=== PATIENT | male | born 1975 | race Caucasian/White ===

== ENCOUNTER → 2017-04-27 | Outpatient (CLI) | payer OTHER ==
[~2017-04-27] MED LIST: ASPIRIN325 PO; CARDIZEM CD240 MG PO; FLECAINIDE ACE100 MG PO; PRADAXA150 MG PO
== END ==
LOC: NUC 04-20 15:19
DX: R10.11 Right upper quadrant pain (principal)

== ENCOUNTER → 2017-05-15 | Outpatient (CLI) | payer OTHER | LOC: ULTRA 12:57 | DX: K80.20 Calculus of gallbladder without cholecystitis without obstruction (principal); K82.9 Disease of gallbladder, unspecified ==

== ENCOUNTER 2017-06-05 05:24 | Inpatient (IN) | payer OTHER ==
[~2017-06-05] VITALS: Ht 175.3 cm; Wt 145.1 kg
--- NOTE | ~2017-06-05 | S ---
[facility] [place] [address] SURGICAL PATH RPT PROCEDURE Name: NADINE NAJERA JR Room #: 434-P [facility] IN M.R.#: [id number] Admission: 06/05/17 Date of : 73 Discharge: 06/06/17 Report #: [id number] Path Case #: [id number] PATHOLOGY REPORT COLLECTION DATE: 06/05/2017 RECEIVED DATE: 06/05/2017 SUBMITTING PHYS: Dr. Sabino Dahl OTHER PHYS: Dr. Fredis Hardy SPECIMEN(S) RECEIVED: A.Gallbladder * * * * * * * * * * * * FINAL DIAGNOSIS: Gallbladder, cholecystectomy: - Mild chronic cholecystitis. - Cholesterolosis. PATHOLOGIST: Yancy Berry M.D. REPORT ELECTRONICALLY SIGNED BY: Yancy Berry M.D. DATE/TIME: 06/07/2017 15:02 * * * * * * * * * * * * GROSS PATHOLOGY: Received in formalin labeled "Nadine Najera Jr, gallbladder," is a 7.1 x 4.9 x 1.6 cm, previously opened gallbladder with a hood bluish, wrinkled, and vascular serosal surfaces. Opening the gallbladder reveals dark munroe, velvety mucosa, rippled with yellow highlights, and an average wall thickness of 0.2 cm. Calculi are not present (upon filtration of the specimen container and contents) and no masses are noted grossly. In Service Education Teacher sections from the body and fundus are submitted along with the proximal margin in cassette A1. (TSD; 06/05/2017) CLINICAL HISTORY: Pre-OP DX: Gallstones Post-OP DX: Chronic and subacute cholelithiasis, cholesterolosis INITIAL CPT CODE(S): A; 68091 Professional services performed by [facility] at [facility] [address], [place] [address] Technical services performed by [facility] at [address] [place] [address] [address] [place] [address] SURGICAL PATH RPT PROCEDURE Name: NADINE NAJERA Pranay Room #: 434-P [facility] IN [facility].#: [id number] Admission: 06/05/17 Date of : 73 Discharge: 06/06/17 Report #: [id number] Path Case #: [id number] [place] [address]. [facility] [address] [place] [address] PHONE: [phone] DIRECTOR: Harvey Wilkerson M.D. * * * END OF REPORT * * *
--- NOTE | ~2017-06-05 | O ---
[facility] [place] [address] OPERATIVE REPORT Name: NADINE FERNANDEZ JR Room #: 434-P ADM IN M.R.#: [id number] Admission: 06/05/17 Attend Phys: Sabino Dahl MD, F Discharge: Date of : 73 Report #: [id number] THIS REPORT FOR: //name// CC: Sabino Escotopaulino Hardy DATE OF SERVICE: 06/05/2017 PREOPERATIVE DIAGNOSIS: Subacute and chronic cholecystitis with cholelithiasis. POSTOPERATIVE DIAGNOSIS: Subacute and chronic cholecystitis with cholelithiasis with cholesterolosis. PROCEDURE: Laparoscopic cholecystectomy with intraoperative cholangiogram. SURGEON: Sabino Dahl MD BILLET ASSEMBLER: Duong Metzger DO SECOND COAT ROOM ATTENDANT: Marlen Herzog MS3 INDICATIONS: A 42-year-old male with 2-3 months of progressive food intolerance. An ultrasound demonstrating cholelithiasis and EGD and colonoscopy within normal limits. OPERATIVE PROCEDURE: The patient had thorough discussion of the procedure, benefits and risks. He gave informed consent to proceed. He was given preoperative IV antibiotics. He was brought to the operating suite and had satisfactory induction of general endotracheal anesthesia. The patient's entire abdomen was prepped and draped in usual sterile procedure with DuraPrep solution. Prior to draping, the patient was securely strapped and taped to the operating room table. Sterile prep and draping was completed, 0.5% plain Naropin was utilized at all trocar sites, 30 mL was utilized during the procedure. An open cutdown procedure was performed at the infraumbilical port site. The 5 mm trocar with a 5.0 scope was easily introduced into the peritoneal cavity. Pneumoperitoneum was established. An upper midline 5 mm trocar port and 2 lateral 5 mm trocar ports were then placed under direct vision. The infraumbilical port was upsized to a 12 mm port with the Cristóbal balloon device. The gallbladder was grasped, retracted cephalad and laterally. Photographs were taken and made part of the medical record. Gallbladder had adhesions to the inferior aspect of the gallbladder. These were taken down with blunt dissection as well as the Sonicision. The cystic duct triangle was clearly delineated. The cystic duct was milked in a retrograde manner toward the gallbladder. Clip was placed toward the gallbladder. A cystotomy was performed. The taut catheter was then inserted into the cystic duct. Flushing of contrast material demonstrated free flow of contrast into the duodenum. [facility] [address] [place] [address] OPERATIVE REPORT Name: NADINE FERNANDEZ JR Room #: 434-P [facility] IN [facility]#: [id number] Admission: 06/05/17 Attend Phys: Sabino Dahl MD, F Discharge: Date of : 73 Report #: [id number] filling defects were encountered. The common hepatic duct and bifurcation were well visualized. The taut catheter was removed. The cystic duct was triply ligated and then divided with Sonicision. The cystic artery was doubly ligated proximally and divided with Sonicision. Gallbladder was resected from the fossa without difficulty. The gallbladder was then placed into an Endobag and removed from the infraumbilical port site. A 0 PDS bcqzap-vu-egcvn suture was placed under direct vision with the suture passer. The Cristóbal trocar was reintroduced, pneumoperitoneum was continued. The patient was flattened. Copious irrigation and evacuation of all irrigating contents was accomplished. No other intra-abdominal pathology was noted. The 5 mm trocar ports were then removed under direct vision. The pneumoperitoneum was evacuated. The 12 mm trocar port was removed at the infraumbilical ports device. The 0 PDS suture was ligated in place. Skin margins were then approximated with subcuticular 4-0 Monocryl at the 5 mm trocar sites. A 4-0 Vicryl was utilized to approximate the infraumbilical skin. Dermabond was applied. The estimated blood loss was less than 10 mL. The patient tolerated the procedure well and he returned to recovery room in stable and satisfactory condition. <ELECTRONICALLY SIGNED> By: Sabino Dahl MD, FACS 06/06/17 1545 1105 1205 Sabino Dahl MD, FACS /nt
[2017-06-05 07:38] LABS: CALCIUM 8.6 mg/dL (8.5-10.1); POTASSIUM 4.1 mmol/L (3.5-5.1)
[2017-06-05 07:48] LABS: TOTAL BILIRUBIN 0.4 mg/dL (<0.1-1.0); TOTAL PROTEIN 7.2 g/dL (6.4-8.2)
[2017-06-05 07:58] VITALS: BP 139/84
[2017-06-05 08:56] LABS: HEMATOCRIT 41.7 % (42.0-52.0); HEMOGLOBIN 14.1 gm/dL (14.0-18.0); MCH 30.9 pg (26.0-34.0); MCHC 33.9 g/dL (28.0-37.0); MCV 91.1 fL (80.0-100.0); RBC 4.58 mil/uL (4.50-6.00); RDW 13.9 % (10.5-14.5); WBC 8.3 thou/uL (4.0-11.0)
[2017-06-05 16:00] VITALS: BP 156/93
[2017-06-05 20:01] VITALS: BP 157/96
[2017-06-06 04:02] VITALS: BP 124/64
[2017-06-06 04:06] VITALS: BP 124/64
[2017-06-06 07:25] VITALS: BP 149/76
[2017-06-06 15:51] VITALS: BP 149/76
== END 2017-06-06 16:08 | disposition home or self-care (01) | DRG 418 ==
LOC: OR 05:24 → 4S 13:54 → OR 16:27 → ENTRNSPT 06-06 15:53 → EDTRNSPTSTS 06-06 15:56 → 4S 06-06 16:08
PROVIDERS: Surgery
PROC: BF141ZZ Fluoroscopy of Gallbladder, Bile Ducts and Pancreatic Ducts using Low Osmolar Contrast (ICD-10-PCS; principal; 2017-06-05)
PROC: 0FT44ZZ Resection of Gallbladder, Percutaneous Endoscopic Approach (ICD-10-PCS; principal; 2017-06-05)
DX: K80.12 Calculus of gallbladder with acute and chronic cholecystitis without obstruction (principal); Z68.42 Body mass index [BMI] 45.0-49.9, adult; I48.91 Unspecified atrial fibrillation; Z87.891 Personal history of nicotine dependence; E78.5 Hyperlipidemia, unspecified; G47.30 Sleep apnea, unspecified; I10 Essential (primary) hypertension; K22.70 Barrett's esophagus without dysplasia; E66.9 Obesity, unspecified
CPT/HCPCS: 10195; 50010; 50101; 50249; 50411; 50555; 50962; 51489; 51975; 52265; 53307; 53314; 54022; 54118; 55245; 55317; 56462; 56525; 56526; 62110; 62900

== ENCOUNTER → 2019-06-21 | Outpatient (CLI) | payer OTHER | LOC: CANPRECLI → CAT 07:30 | DX: Z13.6 Encounter for screening for cardiovascular disorders (principal); I48.0 Paroxysmal atrial fibrillation; G47.30 Sleep apnea, unspecified; I10 Essential (primary) hypertension; E78.00 Pure hypercholesterolemia, unspecified; I25.10 Atherosclerotic heart disease of native coronary artery without angina pectoris; F17.210 Nicotine dependence, cigarettes, uncomplicated; Z79.899 Other long term (current) drug therapy ==

== ENCOUNTER 2020-01-04 18:11 | Emergency (ER) | payer OTHER ==
[~2020-01-04] VITALS: Ht 175.3 cm; Wt 146.1 kg
[2020-01-04 19:06] LABS: ABSOLUTE NEUTROPHILS 4.3 thou/uL (1.4-8.2); BASOPHILS 0.6 % (0.0-2.0); EOSINOPHILS 1.9 % (0.0-3.0); HEMATOCRIT 45.7 % (42.0-52.0); HEMOGLOBIN 15.9 gm/dL (14.0-18.0); LYMPHOCYTES 38.2 % (24.0-44.0); MCH 32.2 pg (26.0-34.0); MCHC 34.7 g/dL (28.0-37.0); MCV 92.8 fL (80.0-100.0); MONOCYTES 11.7 % (1.0-8.0); PLATELET COUNT 286 thou/uL (150-400); POLYS 47.6 % (36.0-66.0); RBC 4.92 mil/uL (4.50-6.00)
[2020-01-04 19:09] LABS: ANION GAP 6 mmol/L (7-16); BUN 12 mg/dL (7-18); CALCIUM 8.7 mg/dL (8.5-10.1); CHLORIDE 103 mmol/L (98-107); CO2 29 mmol/L (21-32); CREATININE 1.1 mg/dL (0.7-1.3); GLUCOSE 107 mg/dL (74-106); POTASSIUM 3.6 mmol/L (3.5-5.1); SODIUM 138 mmol/L (136-145)
[2020-01-04 19:20] LABS: ALBUMIN 3.9 g/dL (3.4-5.0); MAGNESIUM 1.9 mg/dL (1.8-2.4); SGOT 23 U/L (15-37); SGPT 45 U/L (30-65); TOTAL BILIRUBIN 0.3 mg/dL (<0.1-1.0); TOTAL PROTEIN 7.7 g/dL (6.4-8.2); TROPONIN-I <0.06 ng/mL (<0.06)
[2020-01-04 20:14] VITALS: BP 146/89
--- NOTE | 2020-01-05 10:20 | EKG ---
[facility] [place] [address] ELECTROCARDIOGRAM REPORT Name: NADINE FERNANDEZ Room #: DEP [facility]..#: [id number] Admission: 01/04/20 Attend Phys: Discharge: 01/04/20 Date of : 73 Report #: [id number] THIS REPORT FOR: cc: Fredis Hardy MD, Neal A. 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[facility] : 1975 Requested By: Peter Kohler Order Number: [id number] MD: Isaac Poe Measurements Intervals [place] Rate: 103 P: 43 VT: 140 QRS: 41 QRSD: 94 T: 33 QT: 316 QTc: 414 Interpretive Statements Sinus tachycardia Atrial premature complexes Compared to ECG 12/17/2014 07:42:04 Atrial premature complex(es) now present Electronically Signed On 01-05-2020 10:18:45 CDT by Isaac Poe [email or web address] <ELECTRONICALLY SIGNED> By: Isaac Poe MD, FACC 01/05/20 1018 1820 1820 Isaac Poe MD, [facility] /EPI
== END 2020-01-04 20:14 | disposition home or self-care (01) ==
LOC: ER 18:11
PROVIDERS: Emergency Medicine
DX: R00.2 Palpitations (principal); R00.0 Tachycardia, unspecified; I48.91 Unspecified atrial fibrillation; I10 Essential (primary) hypertension; E78.5 Hyperlipidemia, unspecified; Z79.899 Other long term (current) drug therapy; Z88.8 Allergy status to other drugs, medicaments and biological substances; Z87.891 Personal history of nicotine dependence

== ENCOUNTER → 2020-01-13 | Outpatient (CLI) | payer OTHER | LOC: RAD 11:29 | DX: R19.5 Other fecal abnormalities (principal) ==

== ENCOUNTER → 2020-01-13 | Outpatient (CLI) | payer OTHER | LOC: SJCVCIMAG 12:19 | DX: I48.19 Other persistent atrial fibrillation (principal); I10 Essential (primary) hypertension; Z98.890 Other specified postprocedural states; Z87.891 Personal history of nicotine dependence; Z86.79 Personal history of other diseases of the circulatory system ==

== ENCOUNTER 2021-03-14 15:19 | Emergency (ER) | payer OTHER ==
[~2021-03-14] VITALS: Ht 175.3 cm; Wt 143.8 kg
[2021-03-14 15:33] VITALS: BP 170/95
[2021-03-14] MEDS ORDERED: AMLODIPINE BESY10 MG PO (15:37)
[2021-03-14] MEDS ORDERED: ATORVASTATIN CA20 MG PO (15:37)
[2021-03-14] MEDS ORDERED: METFORMIN HCL500 M1 PO (15:37)
[2021-03-14] MEDS ORDERED: DOXYCYCLINE 10100 MG PO (15:50)
== END 2021-03-14 16:09 | disposition home or self-care (01) ==
LOC: ER 15:19
DX: S81.812A Laceration without foreign body, left lower leg, initial encounter (principal); I48.91 Unspecified atrial fibrillation; E78.5 Hyperlipidemia, unspecified; I10 Essential (primary) hypertension; K22.70 Barrett's esophagus without dysplasia; F17.210 Nicotine dependence, cigarettes, uncomplicated; Z79.899 Other long term (current) drug therapy; Z88.1 Allergy status to other antibiotic agents; W01.0XXA Fall on same level from slipping, tripping and stumbling without subsequent striking against object, initial encounter; Y93.89 Activity, other specified; Y92.89 Other specified places as the place of occurrence of the external cause; Y99.8 Other external cause status

== ENCOUNTER → 2021-03-26 | Outpatient (CLI) | payer OTHER ==
[~2021-03-26] MED LIST changes: +AMLODIPINE BESY10 MG PO; +ATORVASTATIN CA20 MG PO; +DOXYCYCLINE 10100 MG PO; +METFORMIN HCL500 M1 PO
== END ==
LOC: HYPER 07:37
PROVIDERS: ATTEND Emergency Medicine Emergency Medical Services
DX: S81.822A Laceration with foreign body, left lower leg, initial encounter (principal); E11.622 Type 2 diabetes mellitus with other skin ulcer; L97.822 Non-pressure chronic ulcer of other part of left lower leg with fat layer exposed; I25.10 Atherosclerotic heart disease of native coronary artery without angina pectoris; I48.91 Unspecified atrial fibrillation; I10 Essential (primary) hypertension; E78.00 Pure hypercholesterolemia, unspecified; E66.8 Other obesity; G47.33 Obstructive sleep apnea (adult) (pediatric); F17.200 Nicotine dependence, unspecified, uncomplicated; Z68.42 Body mass index [BMI] 45.0-49.9, adult; Z79.82 Long term (current) use of aspirin; Z79.899 Other long term (current) drug therapy; Z90.49 Acquired absence of other specified parts of digestive tract; W22.8XXA Striking against or struck by other objects, initial encounter; Y93.89 Activity, other specified; Y92.89 Other specified places as the place of occurrence of the external cause; Y99.8 Other external cause status

== ENCOUNTER 2021-04-25 21:49 | Emergency (ER) | payer OTHER ==
[~2021-04-25] VITALS: Ht 175.3 cm; Wt 142.9 kg
[2021-04-25] MEDS ORDERED: ASA81BEC PO (22:02)
[2021-04-25 22:28] LABS: ABSOLUTE NEUTROPHILS 5.2 thou/uL (1.4-8.2); BASOPHILS 0.4 % (0.0-2.0); EOSINOPHILS 3.1 % (0.0-3.0); HEMATOCRIT 42.9 % (42.0-52.0); HEMOGLOBIN 14.6 gm/dL (14.0-18.0); LYMPHOCYTES 37.3 % (24.0-44.0); MCH 31.6 pg (26.0-34.0); MCV 92.9 fL (80.0-100.0); MONOCYTES 9.8 % (1.0-8.0); PLATELET COUNT 287 thou/uL (150-400); POLYS 49.4 % (36.0-66.0); RBC 4.62 mil/uL (4.50-6.00); RDW 13.6 % (10.5-14.5); WBC 10.5 thou/uL (4.0-11.0)
[2021-04-25 22:38] LABS: CALCIUM 8.2 mg/dL (8.5-10.1); CREATININE 1.1 mg/dL (0.7-1.3); POTASSIUM 4.4 mmol/L (3.5-5.1)
[2021-04-25] MEDS ORDERED: DILTIAZEM ER240 MG PO (23:04)
[2021-04-25 23:53] LABS: URINE BILIRUBIN NEGATIVE (Negative); URINE BLOOD 1+ (Negative); URINE CLARITY CLEAR; URINE COLOR YELLOW; URINE GLUCOSE-RANDOM* NEGATIVE (Negative); URINE KETONES NEGATIVE (Negative); URINE LEUKOCYTES-REFLEX NEGATIVE (Negative); URINE NITRITE-REFLEX NEGATIVE (Negative); URINE PROTEIN (DIPSTICK) NEGATIVE (Negative); URINE SPECIFIC GRAVITY 1.015 (1.005-1.035); URINE UROBILINOGEN 0.2 E.U./dl (0.2-1.0)
[2021-04-26 00:12] VITALS: BP 102/63
[2021-04-26 00:25] LABS: BACTERIA-REFLEX None Seen /HPF (None Seen); CASTS None Seen /LPF (None Seen); CRYSTALS None Seen /LPF (None Seen); MUCUS None Seen strn/LPF (None Seen); SQUAMOUS None Seen /LPF (0-3); URINE RBC 1-2 Rare /HPF (NONE SEEN); URINE WBC-REFLEX None Seen /HPF (0-5)
--- NOTE | 2021-04-26 07:17 | EKG ---
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 : 1975 Requested By: Pete Landon Order Number: [id number] MD: Boris Puente Measurements Intervals [place] Rate: 120 P: MN: QRS: 17 QRSD: 91 T: 4 QT: 319 QTc: 451 Interpretive Statements Atrial fibrillation Compared to ECG 01/04/2020 18:20:22 Sinus tachycardia no longer present Atrial premature complex(es) no longer present Electronically Signed On 04-26-2021 7:17:14 CDT by Boris Puente [email or web address] <ELECTRONICALLY SIGNED> By: Boris Puente MD, [facility] 04/26/21 0717 2157 2157 Boris Puente MD, FACC /EPI
--- NOTE | 2021-04-26 15:09 | EKG ---
[place] [address] [facility] [place] [address] ELECTROCARDIOGRAM REPORT Name: NADINE FERNANDEZ 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
== END 2021-04-26 00:16 | disposition home or self-care (01) ==
LOC: ER 21:49
PROVIDERS: Student in an Organized Health Care Education/Training Program
DX: I48.20 Chronic atrial fibrillation, unspecified (principal); E78.5 Hyperlipidemia, unspecified; I10 Essential (primary) hypertension; E11.9 Type 2 diabetes mellitus without complications; F17.210 Nicotine dependence, cigarettes, uncomplicated; Z79.82 Long term (current) use of aspirin; Z79.899 Other long term (current) drug therapy; Z88.8 Allergy status to other drugs, medicaments and biological substances

== ENCOUNTER 2021-05-17 09:01 | Observation (INO) | payer OTHER ==
[2021-05-17] VITALS (10 sets, daily range): BP systolic 119–137; BP diastolic 60–87
[~2021-05-17] VITALS: Ht 175.3 cm; Wt 134.3 kg
--- NOTE | ~2021-05-17 | P ---
[facility] [address] PROCEDURE REPORT Name: NADINE FERNANDEZ JR Room #: 204-P [facility] M..#: [id number] Admission: 05/17/21 Attend Phys: J Luis Dobbs MD Discharge: Date of : 73 Report #: [id number] THIS REPORT FOR: cc: Fredis Hardy MD, Neal A. MD Couchonnal, Luis F. MD ~ DATE OF SERVICE: 05/17/2021 DATE OF PROCEDURE: 05/17/2021. PROCEDURES PERFORMED: 1. Atrial fibrillation ablation -- CPT code 66264. 2. Mapping, CPT code 06496. 3. Intracardiac echo, CPT code 02840. 4. Focal ablation, CPT code 63451. HISTORY: The patient is a 46-year-old male with history of paroxysmal atrial fibrillation status post ablation back in September 2015 as well as hypertension, obesity, obstructive sleep apnea, prior tobacco abuse, who has had recurrent atrial fibrillation despite antiarrhythmic drug therapy and is here for a repeat ablation. ANESTHESIA: The patient underwent general anesthesia with no anesthesia related complications. DESCRIPTION OF PROCEDURE: The patient underwent informed consent. We discussed the details of the procedure including the risks, which include but not limited to bleeding, vascular damage, stroke, [place], cardiac perforation as well as damage to the alturas conduction system requiring permanent pacemaker. He understood these risks and is willing to proceed. The patient was brought to the EP laboratory in fasting and sedated state, prepped and draped in a standard fashion. At baseline, the patient was in sinus rhythm. I obtained access to the right femoral vein x 3, placing an 8, 9 and 7-Mosotho short sheath using the modified Seldinger technique. Next, under fluoroscopy, a decapolar catheter was placed in the coronary sinus and ICE catheter was placed in the right atrium. The patient was systemically heparinized and a transseptal was performed using an Agilis sheath, and a Wakefield needle. The patient did have a thick interatrial septum, but I was able to cross along the mid interatrial septum. I was able to get my wire out into the left superior pulmonary vein, but I could not advance the Agilis sheath into the left atrium. Therefore, I exchanged for the SL1 sheath. Again, this would not cross into the left atrium either. Therefore, I [facility] [address] [place] [address] PROCEDURE REPORT Name: NADINE FERNANDEZ YOSVANY Room #: 204-P [facility] Devon Nayak#: [id number] Admission: 05/17/21 Attend Phys: J Luis Dobbs MD Discharge: Date of : 73 Report #: [id number] advanced a PowerFlex Pro 6 mm x 4 cm balloon across the septum into the left atrium. I then performed 3 dilatations of the interatrial septum, each at 10 atmospheres and for 10 seconds duration each. After performing this procedure, the SL1 sheath easily advanced into the left atrium. I then exchanged for the cryosheath and again now this easily crossed into the left atrium. Next, I used the PentaRay to create a detailed 3D geometry and voltage map of the left atrium and this showed that all veins had reconnected except for the right superior pulmonary vein. Therefore, I started by re-isolating the left-sided veins almost a shared a common ostium. When I remapped, they were still connected and I ablated along the roof, posterior aspect of the left superior pulmonary vein and then I moved to the anterior fabricio and ablation near the left inferior pulmonary vein fabricio region resulted in isolation of both veins. Next, I turned my attention to the right-sided veins. The right superior pulmonary vein was isolated and therefore, I re-isolated the right inferior pulmonary vein. A repeat voltage map was created and demonstrated that all 4 pulmonary veins were now isolated. The posterior wall appeared to be nice and healthy with no complex fractionated electrograms noted or any intraatrial fibrosis. A basic EP study was performed. AV block was noted at 290 milliseconds. Atrial ERP was noted at 260 milliseconds at a [address] cycle length with atrial burst pacing down to 220 milliseconds. The patient went into atrial flutter with a proximal and distal activation along the CS cycle length of 220 milliseconds and negative sawtooth flutter waves in the inferior leads. Based on these findings, I decided to perform an atrial flutter ablation. Before the ablation could be performed, the patient degenerated into, so the patient was cardioverted. Preablation, the transisthmus conduction time was 35 milliseconds. Ablation was performed at 50 raines in a continuous drag lesion was performed. I performed two lines and then I checked and there was evidence of bidirectional block with a transisthmus conduction time of 150 milliseconds. As such, the patient was in sinus rhythm. Using intracardiac ultrasound, there is no pericardial effusion. The patient received systemic protamine and once ACT was within acceptable range, all catheters and sheaths were pulled. Hemostasis was obtained. CONCLUSION: 1. Successful AFib ablation with re-isolation of the pulmonary veins. 2. Successful atrial flutter ablation with bidirectional block. By: 1450 0041 J Luis Dobbs MD /nt
[~2021-05-17 09:01] MED LIST changes: +ASA81BEC PO; +DILTIAZEM ER240 MG PO; -FLECAINIDE ACE100 MG PO; +TAMBOCOR 100 M100 M1 PO
[2021-05-17] MEDS ORDERED: ASPIRIN EC325 M1 PO (09:41)
[2021-05-17] MEDS ORDERED: LISINOPRIL2.5 MG PO (09:44)
[2021-05-17] MEDS ORDERED: JARDIANCE10 MG PO (09:45)
[2021-05-17] MEDS ORDERED: XARELTO20 MG PO (09:46)
[2021-05-17 10:02] LABS: ABSOLUTE NEUTROPHILS 3.8 thou/uL (1.4-8.2); BASOPHILS 0.6 % (0.0-2.0); EOSINOPHILS 4.4 % (0.0-3.0); HEMATOCRIT 41.5 % (42.0-52.0); LYMPHOCYTES 33.2 % (24.0-44.0); MCH 30.9 pg (26.0-34.0); MCHC 33.6 g/dL (28.0-37.0); MCV 91.8 fL (80.0-100.0); MONOCYTES 10.5 % (1.0-8.0); PLATELET COUNT 297 thou/uL (150-400); POLYS 51.3 % (36.0-66.0); RBC 4.52 mil/uL (4.50-6.00); RDW 13.4 % (10.5-14.5); WBC 7.4 thou/uL (4.0-11.0)
[2021-05-17 10:07] LABS: CALCIUM 8.3 mg/dL (8.5-10.1); CREATININE 0.9 mg/dL (0.7-1.3); POTASSIUM 3.8 mmol/L (3.5-5.1)
[2021-05-17 10:09] LABS: APTT 26.4 Seconds (24.5-32.8); INR 0.94; PROTIME 10.3 Seconds (10.5-12.1)
[2021-05-17 10:15] LABS: ALBUMIN 4.2 g/dL (3.4-5.0); TOTAL BILIRUBIN 0.5 mg/dL (0.2-1.0); TOTAL PROTEIN 7.6 g/dL (6.4-8.2)
--- NOTE | 2021-05-17 17:04 | NUR ---
ARRIVED TO UNIT APPROX 165
[2021-05-18 00:20] VITALS: BP 119/60
[2021-05-18 04:45] VITALS: BP 106/59
--- NOTE | 2021-05-18 06:20 | NUR ---
SLEPT MOST OF SHIFT. UP AD CLARISSE IN ROOM WITH STEADY GAIT. PLAN FOR POSSIBLE DISCHARGE THIS AM. RIGHT GROIN DSG WITH MINIMAL AMOUNT DRIED BLOOD. GROIN SOFT, NO HEMOTOMA NOTED. CONTINUE TO ASSES CLOSELY.
[2021-05-18] MEDS ORDERED: HYDROCHLOROTHIA25 M1 PO (07:56)
[2021-05-18 08:15] VITALS: BP 152/81
[2021-05-18 11:01] VITALS: BP 152/81
--- NOTE | 2021-05-18 13:12 | NUR ---
TOOK OVER CARE FOR THIS PATIENT AT 0700. PATIENT ALERT AND ORIENTATED. PATIENT RESTING COMFORTABLY AT THIS TIME IN BED WITH SPOUSE AT BEDSIDE. PATIENT COMPLAINT OF HEADACHE AT THIS TIME. ADMINISTERED PAIN MEDICATION; PATIENT REPORTED HEADACHE RELIEF WITH PAIN MEDICATION AND EATING LUNCH. DISCHARGE EDUCATION PROVIDED TO PATIENT WELL EDUCATION ON NEW MEDICATIONS AND STROKE. PATIENT DENIES ANY ADDITIONAL NEEDS AT THIS TIME. PATIENT DENIES ANY QUESTIONS. PATIENT DISCHARGED VIA WHEELCHAIR WITH NURSING STAFF AND SPOUSE PRESENT VIA PERSONAL VEHICLE.
== END 2021-05-18 14:01 | disposition home or self-care (01) ==
LOC: CATH 09:01 → 2N 17:26
PROVIDERS: ADMIT Internal Medicine Cardiovascular Disease; ATTEND Internal Medicine Cardiovascular Disease
DX: I48.0 Paroxysmal atrial fibrillation (principal); I48.92 Unspecified atrial flutter; I10 Essential (primary) hypertension; E78.5 Hyperlipidemia, unspecified; E66.9 Obesity, unspecified; G47.33 Obstructive sleep apnea (adult) (pediatric); F17.200 Nicotine dependence, unspecified, uncomplicated; Z68.41 Body mass index [BMI] 40.0-44.9, adult; Z79.82 Long term (current) use of aspirin; Z79.899 Other long term (current) drug therapy
CPT/HCPCS: 70005

== ENCOUNTER → 2021-06-14 | Outpatient (CLI) | payer OTHER ==
[~2021-06-14] MED LIST changes: +ASPIRIN EC325 M1 PO; +HYDROCHLOROTHIA25 M1 PO; +JARDIANCE10 MG PO; +LISINOPRIL2.5 MG PO; +XARELTO20 MG PO
--- NOTE | 2021-06-14 11:48 | EXE ---
[facility] [place] [address] STRESS ECHOCARDIOGRAM Name: NADINE FERNANDEZ JR Room #: REG [facility]#: [id number] Admission: 06/14/21 Attend Phys: Jaziel Alvarez MD Discharge: Date of : 73 Report #: [id number] THIS REPORT FOR: cc: Fredis Hardy MD, Neal A. MD Park, Jin S. MD ~ APPROVED REPORT Study performed: 06/14/2021 10:20:29 Exam: Stress Echocardiogram Indication: Atrial Fibrillation Patient Location: Out-Patient Stress Nurse: Monique Fonseca RN Room #: 2 Status: routine Ht: 5 ft 9 in HR: 96 bpm BP: 146/88 mmHg Rhythm: NSR Medical History Medical History: Atrial Fibrillation Cardiac Risk Factors: HTN, DM Exercise History: Physically active Procedure The patient underwent an Exercise Stress Test using the Sean Protocol. Blood pressure, heart rate, and EKG were monitored. An Echocardiogram was performed by dental technician apprentice in four stages in quad fashion. At peak stress, four selected images were obtained and placed side by side with resting images for comparison. Stress Test Details Stress Test: Exercise stress testing was performed using a Sean protocol. HR Resting HR: 96 bpm Max Heart Rate (APMHR): 173 bpm Max HR Achieved: 157 bpm Target HR (85% APMHR): 147 bpm % of APMHR: 90 Recovery HR: 108 bpm HR response to stress: Normal HR response to stress BP [facility] [address] [place] [address] STRESS ECHOCARDIOGRAM Name: NADINE FERNANDEZ Room #: REG [facility]#: [id number] Admission: 06/14/21 Attend Phys: Jaziel Alvarez MD Discharge: Date of : 73 Report #: [id number] Resting BP: 146/88 mmHg Max BP: 192/56 mmHg Recovery BP: 152/64 mmHg BP response to stress: Normal blood pressure response to stress. ECG Resting ECG: Sinus Rhythm Stress ECG: Sinus Rhythm ST Change: Non-ischemic Clinical Reason for Termination: Maximal effort Exercise duration: 8 min 21 sec Highest Stage Achieved: Stage 3: 3.4 mph at 14% grade. Exercise capacity: 10.4 METs Overall Exercise Capacity for Age: Good Pre-Stress Echo The resting Echocardiogram showed normal left ventricular contractility with an estimated Ejection Fraction of about 55-60%. The resting echocardiogram demonstrated normal wall motion in all wall segments. Post-Stress Echo The stress Echocardiogram showed normal left ventricular contractility with an estimated Ejection Fraction of about 65-70%. Compared to rest, there were no stress-induced wall motion abnormalities. Clinical No clinical or ECG evidence for ischemia. Conclusion Clinical Response: Non-ischemic Exercise Capacity: Average Stress ECG Response: Non-ischemic Stress Echo Images: Non-ischemic Other Information Study Quality: Good <ELECTRONICALLY SIGNED> By: Jaziel Alvarez MD 06/14/21 1147 1147 1147 Jaziel Alvarez MD /INF
== END ==
LOC: CV 09:57
PROVIDERS: ATTEND Internal Medicine Cardiovascular Disease
DX: I48.0 Paroxysmal atrial fibrillation (principal)